=== PATIENT | male | born 1970 | race Caucasian/White ===

== ENCOUNTER 2021-06-02 20:32 | Emergency (ER) | payer SELFPAY ==
[2021-06-02 20:33] VITALS: BP 124/102; PULSE 91; RESP 12; TEMP 36.2; O2SAT 99; BMI 23.6
--- NOTE | 2021-06-02 20:59 | EDS_ITS ---
HPI HPI - Psych History of Present Illness Chief Complaint: Mental Health Informant: patient and friend Onset/Context/Timing Onset: Weeks Narrative Narrative: Friend at bedside provides interpretation. Patient presents with friend or family member secondary to increased hallucinations. They report that in July or August of last year patient had developed hallucinations and was seen at [facility]. He was kept overnight and then admitted to a psychiatric hospital in [place] for 1 week. He was discharged on risperidone. He reportedly stopped this medication about last week when he developed recurrent symptoms including auditory and visual hallucinations. Reportedly these hallucinations are telling him to do things such as leave his home. They are not telling him to harm himself or harm anyone else. Friend does feel that patient is very paranoid with repeated complaints that something bad is going to happen to them. He reportedly has not been able to sleep well. He is eating okay. [facility] Medical History (Updated 06/02/21 @ 22:[address] Yaima Villalobos MD) Anxiety Asthma Paranoid Home Medications albuterol sulfate 2 puff INHALATION Q4H PRN PRN 06/02/21 [History Last Taken Unknown] risperidone 1 mg PO QHS 06/02/21 [History Last Taken Unknown] Allergy/AdvReac Type Severity Reaction Status Date / Time No Known Allergies Allergy Verified 06/02/21 20:33 Social History Smoking Status: Never smoker [facility] ED Constitutional Constitutional ED: Denies chills or fever(s) ENT ENT ED: Denies rhinorrhea or sore throat Cardiovascular Cardiovascular: Denies chest pain or palpitations Respiratory/Chest Respiratory/Chest: Denies cough or dyspnea Gastrointestinal Gastrointestinal: Denies abdominal pain or vomiting Psychiatric Psychiatric: Reports anxiety; Denies suicidal thoughts Hematologic/Lymphatic Hematologic/Lymphatic: Denies easy bleeding or easy bruising Allergic/Immunologic Allergic/Immunologic ED: Denies urticaria EXAM Physical Exam Const Vital Signs: 06/02/21 20:33 Temperature 97.1 F L Temperature Source Temporal Pulse Rate 91 Respiratory Rate 12 Blood Pressure 124/102 H Blood Pressure Mean 109 Pulse Ox 99 Oxygen Delivery Method Room Air Positive well nourished and well developed General Appearance ED: well developed HEENT Reports moist mucous membranes Eyes PERRL and EOMs intact bilaterally Neck no lymphadenopathy and supple Resp normal respiratory effort and clear to auscultation bilaterally Cardio Rate: regular rate Rhythm: regular rhythm GI non-tender Palpation: soft Extremity normal to inspection Neuro oriented x3 Sensorium / Orientation: alert Psych Appearance: grossly normal Activity / Motor Behavior: appropriate eye contact Thought Content: hallucination(s) Skin Lesions: no lesions Rashes: no rashes MDM MDM MDM Narrative Medical decision making narrative: Psychiatric clearance labs obtained. Lab Data Attestation: I reviewed the patient's lab results. Labs: Laboratory Results - last 24 hr 06/02/21 06/02/21 06/02/21 20:50 21:10 21:10 WBC 12.1 H RBC 5.04 Hgb 15.2 Hct 43.6 MCV 86.5 MCH 30.2 MCHC 34.9 RDW Std Deviation 41.3 RDW Coeff of Bobby 13.3 Plt Count 513 H MPV 8.6 Immature Gran % (Auto) 0.300 Neut % (Auto) 62.3 Lymph % (Auto) 28.1 Ness % (Auto) 7.1 Eos % (Auto) 1.5 Baso % (Auto) 0.7 Absolute Neuts (auto) 7.6 Absolute Lymphs (auto) 3.41 Nucleated RBC % 0 Sodium 140 Potassium 3.3 L Chloride 105 Carbon Dioxide 28.0 Anion Gap 7 BUN 8 Creatinine 0.98 Estim Creat Clear Calc 88.17 Est GFR (MDRD) Af Amer 103 Est GFR (MDRD) Non-Af 85 BUN/Creatinine Ratio 8.1 L Glucose 125 H Calcium 9.4 Urine Opiates Screen NEGATIVE Urine Methadone Screen NEGATIVE Ur Barbiturates Screen NEGATIVE Ur Phencyclidine Scrn NEGATIVE Ur Amphetamines Screen NEGATIVE MDMA (Ecstasy) Screen NEGATIVE U Benzodiazepines Scrn NEGATIVE Urine Cocaine Screen NEGATIVE U Cannabinoids Screen NEGATIVE Ur Drug Screen Comment Ethyl Alcohol 06/02/21 21:10 WBC RBC Hgb Hct MCV MCH MCHC RDW Std Deviation RDW Coeff of Bobby Plt Count MPV Immature Gran % (Auto) Neut % (Auto) Lymph % (Auto) Ness % (Auto) Eos % (Auto) Baso % (Auto) Absolute Neuts (auto) Absolute Lymphs (auto) Nucleated RBC % Sodium Potassium Chloride Carbon Dioxide Anion Gap BUN Creatinine Estim Creat Clear Calc Est GFR (MDRD) Af Amer Est GFR (MDRD) Non-Af BUN/Creatinine Ratio Glucose Calcium Urine Opiates Screen Urine Methadone Screen Ur Barbiturates Screen Ur Phencyclidine Scrn Ur Amphetamines Screen MDMA (Ecstasy) Screen U Benzodiazepines Scrn Urine Cocaine Screen U Cannabinoids Screen Ur Drug Screen Comment Ethyl Alcohol < 3.0 Treatment and Re-Evaluation Narrative: Patient's lab work unremarkable. Tox screen negative. Alcohol negative. Covid test is negative. Counseling center will be called for evaluation. Patient will be signed out to oncoming physician for final disposition. Discharge Plan Triage Chief Complaint: Mental Health ED Provider: Yaima Villalobos Dx/Rx/DC Orders Clinical Impression: Hallucinations Prescriptions: No Action risperidone 1 mg tablet 1 mg PO QHS RF: 0 albuterol sulfate 90 mcg/actuation HFA aerosol inhaler 2 puff INHALATION Q4H PRN PRN (Reason: sob) RF: 0 Primary Care Provider: Katherine Brown Referrals: Katherine Brown MD [Primary Care Provider] -
[2021-06-02 21:25] LABS: Absolute Lymphocyte Count 3.41 X10^3/uL (0.83-4.51); Absolute Neutrophil Count 7.6 X10^3/uL (2.0-7.7); Basophil# 0.09 X10^3/uL; Basophil% 0.7 % (0-1); Eosinophil# 0.18 X10^3/uL; Eosinophils% 1.5 % (0-5); Hematocrit 43.6 % (40-54); Hemoglobin 15.2 g/dL (13.0-16.5); Lymphocyte # 3.41 X10^3/ul (0.83-4.51); Lymphocyte % 28.1 % (19-41); Mean Corp Hgb Conc 34.9 g/dL (32-36); Mean Corpuscular Hgb 30.2 pg (27.0-32.0); Mean Corpuscular Volume 86.5 fL (80-94); Mean Platelet Vol. 8.6 fl (6.2-12.0); Monocyte# 0.86 X10^3/uL; Monocyte% 7.1 % (0-10); NRBC Flagged by Analyzer 0 % (0-5); Neutrophil # 7.56 X10^3/uL (2.7-7.7); Neutrophil % 62.3 % (47-70); Platelet Count 513 K/mm3 (150-450); RBC Distribution Width CV 13.3 % (11.6-14.6); RBC Distribution Width SD 41.3 fl (35.1-43.9); Red Blood Count 5.04 M/mm3 (4.6-6.2); White Blood Count 12.1 K/mm3 (4.4-11.0)
[2021-06-02 21:39] LABS: Anion Gap 7 (5-15); BUN 8 mg/dL (7-18); BUN/Creat Ratio 8.1 RATIO (10-20); Calcium,Total 9.4 mg/dL (8.5-10.1); Chloride 105 mmol/L (98-107); Creatinine, Serum 0.98 mg/dL (0.70-1.30); EST Glomerular Filtration Rate 85 mL/min (>60); Est Glom Filt Rate - Afr Amer 103 mL/min (>60); Estimated Creatinine Clearance 88.17 ml/min; Glucose 125 mg/dL (74-106); Potassium 3.3 mmol/L (3.5-5.1); Sodium Level 140 mmol/L (136-145)
[2021-06-02 22:07] LABS: Amphetamine Urine VISTA NEGATIVE (<1000 ng/mL); Barbiturate Urine VISTA NEGATIVE (< 200 ng/mL); Benzodiazepine Urine VISTA NEGATIVE (< 200 ng/mL); Cocaine Urine VISTA NEGATIVE (< 300 ng/mL); Ecstacy Urine VISTA NEGATIVE (< 500 ng/mL); Methadone Urine VISTA NEGATIVE (< 300 ng/mL); PCP Urine VISTA NEGATIVE (< 25 ng/mL); THC Urine VISTA NEGATIVE (< 50 ng/mL); Vista UDS pH Range 6
[2021-06-02 22:09] LABS: Alcohol, Blood (Medical)-Serum < 3.0 mg/dL
--- NOTE | 2021-06-02 22:25 | CM.ED ---
Social Work Due to end of social work shift, hand off provided to crisis for mental health assessment to be completed. Clinical information faxed to Quiana at crisis. Medical team updated. Ambrosio VERA, JAYLEN
[2021-06-02 22:33] VITALS: RESP 17
[2021-06-03] VITALS (10 sets, daily range): BP systolic 116–137; BP diastolic 77–92; PULSE 72–88; RESP 16–20; TEMP 36.6–36.7; O2SAT 95–98
[2021-06-03] MEDS: RisperiDONE 0.5 MG Tablet 1 MG PO (01:06)
--- NOTE | 2021-06-03 01:23 | ED.RN ---
crisis here to see patient at this time
--- NOTE | 2021-06-03 10:22 | CM.ED ---
Addendum entered by Bella Guzmán 06/03/21 10:37: EUGENE updated weigh and charge worker erica and arsalan, reverse unit operator fisherman Bella LERMA Original Note: EUGENE Note EUGENE called Crisis and spoke to Stacey. Patient is pending acceptance at [facility] on single case agreement. Stacey said that she will also schedule transport for patient when patient is accepted. EUGENE updated duct installerBEAU KNIGHT received call from Stacey at [facility]. Patient has been accepted at [facility]. Accepting MD is Dr. White. Going to [facility] unit. RN to RN is [phone]. Patient can not go to [facility] till after 5pm. Stacey will schedule transport and call this typewriter ribbon winder back. Bella LERMA
--- NOTE | 2021-06-03 14:46 | ED.RN ---
Attempted to use hand etcher with patient with Bella KNIGHT at bedside to explain where patient would be getting placed. Pt. said phrases There are police men at the door Why are they trying to kill Kassie They are trying to burn me like they burned my brother. Pt. repeated these phrases over and over again gradually getting louder until he was yelling. Pt. denied hunger or thirst but play leader was unsuccessful in relaying plan for admission to [facility]. Pt. was attemping to grab staff arms but he was redirectable when we placed a blanket in his hands instead.
--- NOTE | 2021-06-03 14:55 | CM.ED ---
SW went into patient's room with Deisy, RN and Chante RN. The ipad with the automation tender was used during this interaction. Patient's speech continues to be paranoid and fragmented. Staff reassured patient that he is safe. SW attempted to update patient that he is going to [facility] however, patient spoke with his eyes closed, in [place], and was not receptive to hearing what this chief writer stated. Patient kept referencing Kassie and that she was not safe. Plan is that patient will go to [facility] on a single case agreement. EUGENE called Stacey at Crisis. She will fax over the assessment. Stacey will also call and schedule transport in 15 minutes and call this chief writer back. clerk of scalesKyleigh joe, updated Plan: [facility] Bella LERMA
--- NOTE | 2021-06-03 15:28 | NURSING ---
PER KATERIN NETWORK SYSTEMS OPERATOR. [facility] IS 45 MIN OUT. CRISIS CALLED THEM
--- NOTE | 2021-06-03 17:09 | ED.RN ---
TRANSPORT FROM [facility] ARRIVED TO TAKE THE PT TO [facility]. TRANSPORT WAS A ONE PERSON CREW. PER THE TRANSPORT STAFF MEMBER, HE HAS A CAR WITH A POLICE CAGE BETWEEN THE FRONT AND BACK SEATS. THIS NURSE ATTEMPTED TO EXPLAIN THAT THE PT IS PARANOID THAT THE POLICE ARE GOING TO KILL HIM. MYSELF AND KATERIN SW ATTEMPTED TO UTILIZE THE CHEMICAL ETCHING PROCESSOR TABLET TO EXPLAIN HE IS BEING TRANSPORTED TO ANOTHER HOSPITAL. PER THE CHEMICAL ETCHING PROCESSOR, THE PT WAS ACCUSING THE CHEMICAL ETCHING PROCESSOR OF LYING AND THE CHEMICAL ETCHING PROCESSOR IS GOING TO HELL. I CAN SEE IT IN YOUR EYES. WE WERE UNABLE TO GET FAR ENOUGH IN THE CONVERSATION WITH THE CHEMICAL ETCHING PROCESSOR TO EXPLAIN THE TRANSPORT OPTIONS. PER THE CHEMICAL ETCHING PROCESSOR, THE PT KEEPS STATING NO I'M GOING HOME. I'M NOT GOING TO ANOTHER HOSPITAL. AFTER THIS NURSE AND KATERIN LEFT THE ROOM, THE PT ATTEMPTED TO LEAVE THE ROOM.
--- NOTE | 2021-06-03 17:11 | CM.ED ---
EUGENE met with patient's brother, Migue. Migue said that last year in June patient had acted similarity and that they took patient to [facility] and he was sent to [facility] for 1 week. Migue said that patient came home and was a little better and then went to [place] with their sister and he was 80% better. Migue said that [facility] said that patient has cycles. Migue said that he and the family thought patient was in his current state as a result of working nights for 20 years. Migue said that sometimes patient will yell at him when he visits and sometimes the visits go well. While in the room patient voiced that someone was attempting to Kill Migue. SW and Migue stepped outside the room as patient was being so disruptive talking about someone killing Mgiue. SW spoke to Migue privately. Migue inquired about insurance. Migue said that patient has a green card. Migue said that patient has no insurance . EUGENE provided Migue with private pay packet which included medicaid application. EUGENE also provided Migue with number for [facility]. EUGENE also provided the crisis number and encouraged Migue to have patient link with [facility] and they can help with counseling, psychiatry and case management services. EUGENE was advised that [email or web address] came for patients transport. EUGENE and RN met with patient and patient was unable to utilize the asphalt roller person service and kept stating he was going home. EUGENE called Jasmyn at Crisis. Advised Jasmyn that we need cot for patient that is going to [facility]. Bella LERMA
== END 2021-06-03 17:49 ==
PROVIDERS: Emergency Provider Emergency Medicine; PCP Family Medicine; Visit Provider Emergency Medicine
DX: R44.3 Hallucinations, unspecified (principal)
CPT/HCPCS: 80048; 80307; 82077; 85025; 87426; 99284